=== PATIENT | male | born 1980 | race Caucasian/White ===

== ENCOUNTER 2018-03-07 09:18 | Emergency (ER) | payer OTHER, MEDICAID ==
--- NOTE | 2018-03-07 10:19 | ED Physician Chart ---
ED Chief Complaint/HPI - Patient Information Date Seen:: 03/07/18 Time Seen:: 09:45 Chief Complaint:: lacerations right hand History of Present Illness:: At 8:00 patient cut his right hand in a meat mixing machine. No other injuries. Allergies:: Allergies Allergy/AdvReac Type Severity Reaction Status Date / Time No Known Allergies Allergy Verified 03/07/18 09:38 Vitals:: Vital Signs - 8 hr 03/07/18 03/07/18 09:39 10:06 Temp 98.7 F 97.9 F HR 73 77 RR 16 16 BP 129/83 122/56 O2 Sat % 98 99 Historian:: Patient Review:: Nurse's Note Reviewed ED Review of Systems - Review of Systems General/Constitutional: No fever, No chills Skin: Skin lesions Head: No headache Eyes: No loss of vision ENT: No earache Neck: No neck pain Cardio Vascular: No chest pain, No palpitations Pulmonary: No SOB GI: No nausea, No vomiting, No diarrhea Musculoskeletal: Bone or joint pain Endocrine: No polyuria Psychiatric: No prior psych history, No depression Hematopoietic: No bruising Allergic/Immuno: No urticaria Neurological: No syncope ED Past Medical History - Past Medical History Past Medical History: No significant medical hx, Dyslipidemia Social History: Non Smoker, Alcohol Surgical History: None Psychiatricy History: None Medication: None ED Physical Exam - Physical Examination General/Constitutional: Awake, Well-developed, well-nourished, Alert, No distress, GCS 15, Non-toxic appearing, Ambulatory Head: Atraumatic Eyes: Lids, conjuctiva normal, PERRL, EOMI Skin: No lymphadenopathy Other Skin comments:: Right hand: Neurovascular status intact; 3-1/2 cm proximally based flap laceration centered over dorsal PIP joint long finger; flap retracted and seen to be superficial to deep structures; 1 1/4 centimeter long laceration over porras PIP joint right long finger; 1 cm laceration over porras PIP joint right ring finger ENMT: External ears, nose nl, Nasal exam nl, Lips, teeth, gums nl Neck: Nontender, Full ROM w/o pain, No JVD, No nuchal rigidity, No bruit, No mass, No stridor Respiratory: Nl effort/Exclusion, Clear to Auscultation, No Wheeze/Rhonchi/Rales Cardio Vascular: RRR, No murmur, gallop, rubs, NL S1 S2 GI: No tenderness/rebounding/guarding, No organomegaly, No hernia, Normal BS's, Nondistended, No mass/bruits, No McBurney tenderness : No CVA tenderness Extremities: No tenderness or effusion, Full ROM, normal strength in all extremities, No edema, Normal digits & nails Neuro/Psych: Alert/oriented, DTR's symmetric, Normal sensory exam, Normal motor strength, Judgement/insight normal, Mood normal, Normal gait, No focal deficits Misc: Normal back, No paraspinal tenderness ED Assessment Laceration Type:: Simple Prep/Irrigation:: Right long finger: Skin cleansed with Betadine solution; 1% Xylocaine used for digital block; 7-8 simple interrupted 3.0 chromic gut sutures to close flap laceration of dorsum; 2 3-0 chromic interrupted sutures to close laceration over palmar PIP joint. Right ring finger: 1 cm laceration over palmar PIP joint not sutured because skin edges were so well approximated. Bandaids and 3 inch laurel for dressing ED Septic Shock - . Is Septic Shock (SBP<90, OR Lactate>4 mmol\L) present?: No - <6hrs of presentation: Vital Signs: Vital Signs - 8 hr 03/07/18 03/07/18 09:39 10:06 Temp 98.7 F 97.9 F HR 73 77 RR 16 16 BP 129/83 122/56 O2 Sat % 98 99 ED Reassessment (Disposition) - Reassessment Reassessment Condition:: Improved - Diagnosis Diagnosis:: 3-1/2 cm laceration right ring finger; one and a quarter centimeter laceration right ring finger - Aftercare/Follow up Instructions Aftercare/Follow-Up Instructions:: Refer to Discharge Instructions - Patient Disposition Discharge/Transfer:: Home Condition at Disposition:: Stable
--- NOTE | 2018-03-07 11:54 | Diagnostic Imaging Report ---
Right hand 3 views Indication: Trauma Comparison: none Findings: Overlying wrapping material seen along this third and fourth phalanges limiting assessment of these regions. There is probable soft tissue injury these regions. There may be minimal debris along the third mid phalangeal soft tissues. No evidence of an acute fracture. No erosions. Mild cystic changes of the metacarpal heads are noted. Impression: Problem soft tissue injury of the third and fourth phalanges. Overlying wrapping material limits assessment of these regions. There may be minimal debris seen along the third metaphalangeal regional soft tissues. Please correlate clinically. No evidence of acute fracture. In the setting of trauma, if clinical symptoms persist and there is continued concern for an occult fracture, follow up exams in 5-7 days is suggested.
== END 2018-03-07 10:40 | disposition home or self-care (01) ==
LOC: ER 09:18
DX: S61.214A Laceration without foreign body of right ring finger without damage to nail, initial encounter (principal); S61.411A Laceration without foreign body of right hand, initial encounter; E78.5 Hyperlipidemia, unspecified; W45.8XXA Other foreign body or object entering through skin, initial encounter; Y93.89 Activity, other specified; Y92.89 Other specified places as the place of occurrence of the external cause; Y99.0 Civilian activity done for income or pay
CPT/HCPCS: 12002; 73120-TC-RT; A4217; Z7502; Z7610